=== PATIENT | female | born 1980 | race Caucasian/White ===

== ENCOUNTER 2017-10-07 09:21 | Emergency (ER) | payer BC, OTHER ==
[~2017-10-07] VITALS: Ht 152.4 cm; Wt 109.0 kg
[2017-10-07] MEDS ORDERED: CYCLOBENZAPRINE 10MG TABLET PO ONE (11:00)
[2017-10-07] MEDS ORDERED: KETOROLAC 60MG/2ML VIAL IM ONE (11:00)
[2017-10-07 11:24] VITALS: BP 150/78
== END 2017-10-07 11:45 | disposition home or self-care (01) ==
LOC: ER 09:28
DX: M54.5 Low back pain (principal)
CPT/HCPCS: 96372; 99283; J1885